=== PATIENT | female | born 1955 | race Caucasian/White ===

== ENCOUNTER 2019-12-28 06:34 | Observation (INO) ==
--- NOTE | 2019-12-05 19:48 | PAT Medication Instructions ---
Medication Instructions Date of Service December 05, 2019 Home Medications ascorbic acid (vitamin C) [Vitamin C] 500 mg PO QAM 11/30/19 [History Confirmed 11/30/19] atorvastatin 20 mg PO PM 11/30/19 [History Confirmed 11/30/19] calcium carbonate-vitamin D3 [Calcium 600 + D(3)] 1 cap PO BID 11/30/19 [History Confirmed 11/30/19] cetirizine [Zyrtec] 10 mg PO QAM 11/30/19 [History Confirmed 11/30/19] cholecalciferol (vitamin D3) [Vitamin D3] 1,000 unit PO QAM 11/30/19 [History Confirmed 11/30/19] diclofenac sodium 75 mg PO BID PRN 11/30/19 [History Confirmed 11/30/19] ferrous sulfate 325 mg PO DAILY 11/30/19 [History Confirmed 11/30/19] hydrochlorothiazide 25 mg PO QAM 11/30/19 [History Confirmed 11/30/19] levothyroxine 175 mcg PO QAM 11/30/19 [History Confirmed 11/30/19] losartan 50 mg PO QPM 11/30/19 [History Confirmed 11/30/19] pramipexole 0.5 mg PO PM 11/30/19 [History Confirmed 11/30/19] ASK your surgeon for instructions diclofenac sodium 75 mg PO BID PRN 11/30/19 [History Confirmed 11/30/19] STOP taking 24 hours before surgery pramipexole 0.5 mg PO PM 11/30/19 DO NOT take the morning of surgery ascorbic acid (vitamin C) [Vitamin C] 500 mg PO QAM 11/30/19 [History Confirmed 11/30/19] calcium carbonate-vitamin D3 [Calcium 600 + D(3)] 1 cap PO BID 11/30/19 [History Confirmed 11/30/19] cetirizine [Zyrtec] 10 mg PO QAM 11/30/19 [History Confirmed 11/30/19] cholecalciferol (vitamin D3) [Vitamin D3] 1,000 unit PO QAM 11/30/19 [History Confirmed 11/30/19] ferrous sulfate 325 mg PO DAILY 11/30/19 [History Confirmed 11/30/19] hydrochlorothiazide 25 mg PO QAM 11/30/19 [History Confirmed 11/30/19] Take morning of surgery With a small sip of water, OTHERWISE NOTHING TO EAT OR DRINK AFTER MIDNIGHT: levothyroxine 175 mcg PO QAM 11/30/19 [History Confirmed 11/30/19] Take evening before surgery atorvastatin 20 mg PO PM 11/30/19 [History Confirmed 11/30/19] calcium carbonate-vitamin D3 [Calcium 600 + D(3)] 1 cap PO BID 11/30/19 [History Confirmed 11/30/19] losartan 50 mg PO QPM 11/30/19 [History Confirmed 11/30/19] Other Notes If you have any questions please call us at [phone] or [phone] or [phone] or [phone]
--- NOTE | 2019-12-06 13:36 | Anesthesiology Consultation ---
Date of Service December 06, 2019 Assessment & Plan (1) Encounter for pre-operative examination: - Awaiting review of preop testing (labs, EKG, CXR). - PCP: 12/02/19: "pt acceptable risk for LTKA in Dec with Dr. Richter as long as her updated EKG at [facility] is stable" Chart Review Chart Review: Patient seen in Pre Admission Testing Teaching & Discussion Pre-Anesthesia Teaching/Discussion Notes: Instructed NPO after midnight before surgery,except medications with 15 cc of water. Medication instructions provided according to the PAT guidelines. History Surgery Operation Date: 12/28/19 11:20 Proposed Procedures p Left Total Knee Arthroplasty - Blaise Richter MD Height/Weight Height: 5 ft 10 in Weight: 108.4 kg Allergies Allergy/AdvReac Type Severity Reaction Status Date / Time lisinopril AdvReac Intermediate Cough Verified 11/30/19 12:58 Medications Home Medications Medication Instructions Recorded Confirmed Last Taken ascorbic acid (vitamin C) [Vitamin 500 mg PO QAM 11/30/19 11/30/19 Unknown C] atorvastatin 20 mg PO PM 11/30/19 11/30/19 Unknown calcium carbonate-vitamin D3 1 cap PO BID 11/30/19 11/30/19 Unknown [Calcium 600 + D(3)] cetirizine [Zyrtec] 10 mg PO QAM 11/30/19 11/30/19 Unknown cholecalciferol (vitamin D3) 1,000 unit PO QAM 11/30/19 11/30/19 Unknown [Vitamin D3] diclofenac sodium 75 mg PO BID PRN 11/30/19 11/30/19 Unknown ferrous sulfate 325 mg PO DAILY 11/30/19 11/30/19 Unknown hydrochlorothiazide 25 mg PO QAM 11/30/19 11/30/19 Unknown levothyroxine 175 mcg PO QAM 11/30/19 11/30/19 Unknown losartan 50 mg PO QPM 11/30/19 11/30/19 Unknown pramipexole 0.5 mg PO PM 11/30/19 11/30/19 Unknown Past Medical History Medical History Diverticular disease Hearing deficit Hyperlipidemia Hypertension Hypothyroidism Obesity Osteoarthritis Exercise / Class Metabolic Activity II 4-5 Yardwork/Stairs/Walk up hill Past Family History Family History Mother FHx: breast cancer, Onset Age: 67 FHx: malignant neoplasm of bone Father FHx: pancreatic cancer Sister FHx: pancreatic cancer Past Surgical History Surgical History History of section History of colonoscopy History of esophagogastroduodenoscopy (EGD) S/P BERHANE (total abdominal hysterectomy) with unilateral oopherectomy Past Anesthesia History No Hx of Anesthesia Complications (except PONV x1 ) and No Family Hx of Anesthe carlos Complications History of PONV No Hx of Motion Sickness and History of PONV (x1 episode) Social History Smoking Status: Never smoker Do You Dip or Chew Tobacco: No Hx Alcohol Use: No Hx Substance Use: No Review of Systems Patient denies chest pain, shortness of breath, dyspnea on exertion, cough, wheezing, palpitations. Physical Exam Vital Signs VITALS BP 151/85 P 68 TEMP 97.9 SP02 98%RA RESP 18 PHYSICAL Full neck and c-spine range of motion. Full TMJ range of motion. TMD 2 finger breaths Mallampati Score 3 Dentition: chipped molar Lungs: clear throughout to auscultation Cardiac: regular rate and rhythm, no murmurs noted Spine: normal Carotid arteries: negative bruit Extremities: no edema Testing Laboratory Results 11/28/19 WBC 6.26 H/H 13.9/43.1 PLATELETS 273 SODIUM 145 POTASSIUM 3.9 CHLORIDE 108 CO2 26 BUN 17 CREATININE 0.9 GLUCOSE 93 Stress Test Date: 09/03/18 Type: DSE DSE normal without resting LV wall motion abnormalities or inducible ischemia. No EKG evidence of ischemia. LVEF 57%. 89% MPHR. No significant valvular disease. Occasional PAC's/PVC's.
--- NOTE | 2019-12-06 14:48 | XRay Report ---
XR chest Pre-admission PA/Lat HISTORY: Preop. COMPARISON: None. FINDINGS: The lungs are clear. Cardiac silhouette is normal in size. No pleural effusions. No pneumot horax. IMPRESSION: No acute process. ACT 112: Negative or not required by law. Electronically signed by: Dell Pickering M.D. 12/06/2019 2:47 PM
[2019-12-06 16:20] LABS: Partial Thromboplastin Ratio 0.9; Partial Thromboplastin Time 23.8 Seconds (21.0-31.0); Prothrombin Time 10.3 Seconds (9.0-12.0)
[2019-12-06 16:22] LABS: Appearance Urine Cloudy (Clear); Bacteria Urine Automated 1+ (Negative); Bilirubin Urine Negative (Negative); Blood Urine Negative (Negative); Color Urine Dark Yellow; Epithelial Cell Urine Auto >30 /lpf (0-5); Glucose Urine UA Negative (Negative); Ketones Urine Trace (Negative); Leukocyte Esterase Urine 2+ (Negative); Nitrite Urine Negative (Negative); Protein Urine Negative (Negative); RBC Urine Automated 0-4 /hpf (0-4); Specific Gravity Urine 1.028 (1.000-1.030); Urobilinogen Urine Negative (Negative)
--- NOTE | 2019-12-06 23:09 | Electrocardiogram Report ---
Test Reason : Blood Pressure : / mmHG Vent. Rate : 069 BPM Atrial Rate : 069 BPM P-R Int : 132 ms QRS Dur : 092 ms QT Int : 408 ms P-R-T Axes : 012 027 067 degrees QTc Int : 437 ms Normal sinus rhythm Normal ECG No previous ECGs available Confirmed by Rusty Escudero ([id number]) on 12/06/2019 11:09:46 PM Referred By: Blaise Richter Confirmed By:Rusty Escudero
[2019-12-07 05:39] LABS: Estimated Average Glucose 108 mg/dl; Hemoglobin A1C 5.4 % (4.5-5.6)
--- NOTE | 2019-12-27 18:26 | History and Physical Report ---
DATE OF ADMISSION: 12/28/2019 CHIEF COMPLAINT: Left knee pain. HISTORY OF PRESENT ILLNESS: This is a 64-year-old female patient of Dr. Graff complaining of chronic left knee pain, longstanding, now progressively getting worse. The patient has been diagnosed with end-stage osteoarthritis per clinical and radiographic exams. The patient has failed conservative treatment including intra-articular injections, anti-inflammatories, the use of a brace and home exercise program. The patient wished to proceed with a left total knee arthroplasty. PAST MEDICAL HISTORY: Heart murmur, hypertension, hypothyroidism, osteoarthritis, obesity. SOCIAL HISTORY: Nonsmoker, nondrinker. FAMILY HISTORY: Noncontributory. REVIEW OF SYSTEMS: Chronic left knee pain and instability. Otherwise, denies any shortness of breath, chest pain, nausea, vomiting or any other joint complaints. PAST SURGICAL HISTORY: C-sections x2 and hysterectomy. MEDICATIONS: 1. Hydrochlorothiazide 25 mg daily. 2. Ferrous sulfate 325 mg daily. 3. Levothyroxine 175 mcg daily. 4. Diclofenac sodium 75 mg twice daily. 5. Losartan 50 mg daily. 6. Atorvastatin 20 mg daily. 7. Mirapex 0.5 mg daily. 8. Fluticasone 50 mcg actuation nasal inhaler 2 sprays in each nostril daily as needed. 9. Vitamin C as needed. 10. Loratadine 10 mg daily. 11. Tylenol as needed. 12. Vitamin D 400 units daily. 13. Calcium 500 mg daily. ALLERGIES: LISINOPRIL. PHYSICAL EXAMINATION: GENERAL: Well-developed, well-nourished 64-year-old female in no acute distress. She is alert and oriented x3 and pleasant. HEENT: Normocephalic, atraumatic. Extraocular motions are intact. Pupils are equal and reactive to light. HEART: Regular rate and rhythm, no murmurs. LUNGS: Clear. ABDOMEN: Soft, nontender, bowel sounds present. EXTREMITIES: Left knee reveals a varus deformity with medial joint line tenderness. She has a mild effusion. Limited range of motion of negative 10-115 degrees, 5/5 strength with pain. DIAGNOSES: Left knee end-stage osteoarthritis, heart valve problem, hypertension, hypothyroidism, osteoarthritis, and obesity. PLAN: The patient was advised of her diagnosis. Indications, risks, benefits, postop course have all been reviewed. The patient wished to proceed with left total knee arthroplasty. Necessary consent forms, preoperative testing and clearances will be obtained.
[~2019-12-28 06:34] MED LIST: ACETAMINOPHEN 500 MG TAB PO SCH; BUPIVACAINE 0.5 % 5 MG/1 ML PF 10ML VIAL ONE; CEFAZOLIN 2000MG 2,000 MG/15 ML SYR IV SCH; CeleBREX 200 MG CAP PO SCH; EPINEPHrine INJ 1 MG/ML AMP ONE; FAMOTIDINE 20 MG TAB PO SCH; GABAPENTIN 600 MG DOSE PO SCH; LR 500ML BOLUS, THEN 15ML/HR IV SCH; METOCLOPRAMIDE HCL 10 MG TABLET PO SCH; ROPIVACAINE 0.5% 5 MG/ML 30 ML VIAL ONE; ROPIVACAINE 0.5% HCL/PF 150 MG, BUPIVACAINE 0.5% MPF 30 ML, EPINEPHrine 30MG/30ML (OR U... INFIL SCH; TRANEXAMIC ACID 1,000 MG **IV Intra-op IV SCH; TRANEXAMIC ACID 1,000 MG **IV Pre-op IV SCH; dexAMETHasone 4 MG TAB PO SCH
[2019-12-28] MEDS ORDERED: PROPOFOL IV EMULSION 10 MG/ML 20 ML VIAL IV ONE (06:51)
[2019-12-28] MEDS ORDERED: LIDOCAINE HCL 2% 2 ML VIAL/AMP(20MG/ML) INFIL ONE (06:51)
[2019-12-28] MEDS ORDERED: MIDAZOLAM HCL 1 MG/ML 2ML VIAL ONE (06:51)
[2019-12-28] MEDS ORDERED: ONDANSETRON INJ 2 MG/ML 2 ML VIAL ONE (06:51)
[2019-12-28] MEDS ORDERED: fentaNYL citrate 100 MCG/2 ML VIAL ONE (06:51)
--- NOTE | 2019-12-28 06:56 | History & Physical Bridge Note ---
Date of Service December 28, 2019 History & Physical Bridge Note I have examined the patient, reviewed the History & Physical and in the interval since the performance of the History & Physical I have noted the following changes of clinical significance: no changes noted
[2019-12-28] MEDS ORDERED: BACITRACIN INJ 50,000 UNIT VIAL ONE (08:25)
[2019-12-28] MEDS ORDERED: ORTHO JOINT ANESTHETIC ONE (08:25)
[2019-12-28] MEDS ORDERED: ePHEDrine sulfate 50 MG/ML AMP IV PRN (10:48)
[2019-12-28] MEDS ORDERED: ATROPINE SULFATE 0.1 MG/ML 10ML SYR IV PRN (10:48)
--- NOTE | 2019-12-28 10:54 | Operative Report ---
Post Operative Report Pre & Post Diagnosis Operation Date: 12/28/19 08:40 Pre-Op Diagnosis: LEFT KNEE OSTEOARTHRITIS Post-Op Diagnosis: LEFT KNEE OSTEOARTHRITIS I identified the patient and participated in the time-out.: Yes Procedure Operation Date: 12/28/19 08:40 Actual Procedures p Left Total Knee Arthroplasty(Left) - Blaise Richter MD Surgeon Blaise Richter MD Commiss[employer] Steward Juan ROMERO Estimated Blood Loss 5 Findings Consistent with Post-Op Diagnosis Specimens Bone cuts Drains 2 Hemovac Anesthesia Type MAC Spinal Regional Complications none Disposition Accompanied Patient To Recovery: No Disposition: Recovery Room Indications 64-year-old female with progressive osteoarthritis left knee. Patient has end- stage osteoarthritis bone loss medial compartment with varus knee laxity LCL tricompartmental osteoarthritis [id number] medial compartment Description of Procedure Patient taken to the operating room the size under spinal MAC regional anesthesia. Patient was placed supine on the operating table. A pneumatic tourniquet was placed about the left upper thigh. The left lower extremity was prepped and draped in sterile fashion. Knee exam demonstrated 10 degree flexion contracture with flexion to 95 degrees varus knee tight medial compartment laxity LCL. The leg was elevated exsanguinated with an Esmarch bandage and pneumatic tourniquet was raised to 325 millimeters of mercury. Skin incised sharply in longitudinal fashion. Subcutaneous flaps elevated. Incision was made through the medial retinaculum extending up in the mid third of the quadriceps tendon and down to the medial tibial tubercle. Intra-articular findings demonstrated tricompartmental OA medial posterior medial bone loss on the tibia [id number] medial compartment [id number] in the trochlea and patella chronic ACL tear tricompartmental osteophytes and loose bodies.. The [place] triathlon total knee arthroplasty system was used. To expose the knee the infrapatellar fat pad was resected. The meniscal remnants and cruciate ligaments were resected. The anterior fat pad over the femur in the area of the anterior flange of the femoral component was resected. Lateral synovial bands release. The femur was exposed. An intramedullary drill hole was made into the canal. A guide hiral was placed. Distal femoral cutting guide was adjusted to resect a 5 degree valgus cut with 10 millimeters distal femur resected. The knee was extended and a subperiosteal peel lateral release was performed around the patella. Patella width was measured and width was reproduced using a freehand cut technique and a 33 x 9 symmetrical patella component. The 3 drill holes were made and the excess lateral facet was beveled off to prevent any impingement. Attention was taken back to the femur which was exposed with retractors and the femoral sizing guide was pinned in position. The drill holes were placed in 3 of external rotation to match epicondylar axis. Femur sized for a 5 PS component. The 4-in-1 cutting block was placed and then the anterior posterior and chamfer cuts are made. The tibia was then subluxed. The external tibial cutting guide was just to make a perpendicular cut to the long axis of the tibia below the most deficient bone loss side. A lamina school bus driver/mechanic was used and the flexion extension gaps were balanced. This required medial posterior medial release excision posterior medial osteophytes pie crusting MCL. All posterior osteophytes removed. All meniscal remnants were resected. The tibia exposed and the trial tibial component size 4 was externally rotated in line with the tibial tubercle and pinned in position. The punch and drills for stem were used. The notch cutting device was centered appropriately and the femoral notch cut was made. The femoral trial was inserted. Trial tibial inserts were placed and size 13 gave balanced ligaments through flexion and extension. Patella tracking was assessed. The patella tracked centrally. The trial components were then removed and the orthomix anesthetic cocktail was injected per protocol. The knee was then copiously irrigated with pulsatile lavage antibiotic solution. Final components were then cemented with Simplex cement. Final components were left posterior stabilized size 5 Jama femoral component with distal fixation pegs, size 4 tibial universal baseplate with 12 x 50 mm cemented stem, 13 posterior stabilized polyethylene insert, 33 x 9mm symmetrical patella. While the cement cured the Betadine soak was used per protocol. After cement cured further pulsatile lavage irrigation performed and 2 Hemovac drains were brought out laterally. The quadriceps tendon and medial retinaculum were closed with figure of 8 #1 Vicryl sutures. The knee was taken through full range of motion and the repair was secure. The subcutaneous tissues were closed with 2-0 Vicryl sutures. Skin was closed with blayne. Sterile dressings were applied. Patient procedure well. Catalino ROMERO was my physician photography assistant who assisted in patient positioning prepping and draping,leg positioning ,soft tiss ue retraction and instrument management and participated in the closing and will participate in postoperative care of the patient. The patient tolerated the procedure well. I attest to the content of the Intraoperative Record and any orders documented therein. Any exceptions are noted below.
--- NOTE | 2019-12-28 11:35 | XRay Report ---
XR knee LT 1 or 2V routine CLINICAL HISTORY: Surgical Post Op COMPARISON: None. DISCUSSION: There are postsurgical changes of a total left knee arthroplasty and patellar resurfacing . Overlying skin blayne and surgical drains are evident. Air within the soft tissues is felt to be p ostsurgical. The femoral and tibial components appear well seated. IMPRESSION: Postsurgical changes of a total left knee arthroplasty. ACT 112: Negative or not required by law. Electronically signed by: Fabricio Eastman M.D. 12/28/2019 11:34 AM
--- NOTE | 2019-12-28 11:49 | Anesthesiology Progress Note ---
Date of Service December 28, 2019 Anesthesia Post Procedure Vital Signs Vital Signs: Temp Pulse Pulse Resp BP Pulse Ox 12/28/19 11:40 72 12 126/66 97 12/28/19 11:30 73 11 L 134/64 98 12/28/19 11:20 81 12 130/65 97 12/28/19 11:10 36.8 C 87 13 129/56 L 93 12/28/19 06:57 36.8 C 86 18 170/88 H 97 Pain Intensity Left Knee: Pain Intensity: 0 Transfer of Care Handoff Completed per policy Notes Mental Status: alert / awake / arousable Patient Amnestic to Procedure: Yes Nausea / Vomiting: adequately controlled Pain: adequately controlled Airway Patency, RR, SpO2: stable & adequate BP & HR: stable & adequate Hydration State: stable & adequate Anesthetic Complications: no major complications apparent
[2019-12-28] MEDS ORDERED: bisacodyL 10 MG SUPP PR PRN (12:14)
[2019-12-28] MEDS ORDERED: NALOXONE HCL 0.4 MG/1 ML VIAL/CARP IV PRN (12:14)
[2019-12-28] MEDS ORDERED: ONDANSETRON INJ 2 MG/ML 2 ML VIAL IV PRN (12:14)
[2019-12-28] MEDS ORDERED: MAGNESIUM HYDROXIDE SUSP 30 ML UDC PO PRN (12:14)
[2019-12-28] MEDS ORDERED: HYDROmorphone INJ 0.5 MG/0.5 ML SYR IV PRN (12:14)
[2019-12-28] MEDS: ACETAMINOPHEN 500 MG TAB PO SCH ×2 (13:46→21:18)
[2019-12-28] MEDS: SODIUM CHLORIDE 0.9% 1000ML 1,000 ML IV SCH (17:06)
[2019-12-28] MEDS: FERROUS GLUCONATE 324 MG TAB PO SCH (17:08)
[2019-12-28] MEDS: CEFAZOLIN 2000MG 2,000 MG/15 ML SYR IV SCH (18:05)
[2019-12-28] MEDS: ASPIRIN 81 MG ECTAB PO SCH (21:17)
[2019-12-28] MEDS: CALCIUM 600MG + VIT D 400 IU TAB PO SCH (21:17)
[2019-12-28] MEDS: DOCUSATE SODIUM 100 MG CAP PO SCH (21:17)
[2019-12-28] MEDS: SENNA 8.6 MG TAB PO SCH (21:18)
[2019-12-28] MEDS: LOSARTAN POTASSIUM 50 MG TAB PO SCH (21:18)
[2019-12-28] MEDS: PRAMIPEXOLE DIHYDROCHLO 0.5 MG TAB PO SCH (21:18)
[2019-12-28] MEDS: ATORVASTATIN 20 MG TAB PO SCH (21:18)
[2019-12-28] MEDS: OXYCODONE HCL IR 5 MG TAB (IMMEDIATE RELEASE) PO PRN (22:17)
[2019-12-29] MEDS: CEFAZOLIN 2000MG 2,000 MG/15 ML SYR IV SCH (02:22)
[2019-12-29] MEDS: SODIUM CHLORIDE 0.9% 1000ML 1,000 ML IV SCH (02:31)
[2019-12-29] MEDS: LEVOTHYROXINE SODIUM 175 MCG TABLET PO SCH (05:55)
[2019-12-29 06:09] LABS: Hematocrit (blood only) 33.5 % (37-47); Hemoglobin 11.1 g/dL (12.0-16.0); Mean Corpuscular Hemoglobin 30.1 pg (25-34); Mean Corpuscular Hgb Conc 33.1 g/dL (32-36); Mean Corpuscular Volume 90.8 fL (80-100); Mean Platelet Volume 10.2 fL (7.4-10.4); Platelet Count 230 K/uL (130-400); RDW Coefficient of Variation 12.4 % (11.5-14.5); RDW Standard Deviation 41.5 fL (36.4-46.3); Red Blood Count 3.69 M/uL (4.2-5.4); White Blood Count 14.51 K/uL (4.8-10.8)
[2019-12-29] MEDS: ACETAMINOPHEN 500 MG TAB PO SCH ×3 (06:31→21:29)
[2019-12-29 06:41] LABS: Calcium 8.4 mg/dl (8.5-10.1); Creatinine Clr Calc Pharmacy 90.5 ml/min; Est GFR (African American) 86.4; Est GFR (Non-African American) 74.5; Potassium 4.1 mmol/L (3.5-5.1)
[2019-12-29] MEDS: DOCUSATE SODIUM 100 MG CAP PO SCH ×2 (08:48→21:29)
[2019-12-29] MEDS: CALCIUM 600MG + VIT D 400 IU TAB PO SCH ×2 (08:48→21:29)
[2019-12-29] MEDS: ASPIRIN 81 MG ECTAB PO SCH ×2 (08:48→21:29)
[2019-12-29] MEDS: CETIRIZINE HCL 10 MG TABLET PO SCH (08:48)
[2019-12-29] MEDS: CHOLECALCIFEROL 1,000 UNITS 25 MCG TAB PO SCH (08:48)
[2019-12-29] MEDS: FERROUS GLUCONATE 324 MG TAB PO SCH ×2 (08:48→17:41)
[2019-12-29] MEDS: MULTIVITAMIN TAB PO SCH (08:48)
--- NOTE | 2019-12-29 09:33 | Anesthesiology Progress Note ---
Date of Service December 29, 2019 Anesthesia Post Procedure Vital Signs Vital Signs: Temp Pulse Pulse Resp BP Pulse Ox 12/29/19 08:39 36.4 C L 64 17 151/81 H 98 12/29/19 03:25 36.8 C 68 16 132/74 95 12/28/19 23:29 36.8 C 67 16 114/69 92 12/28/19 19:53 36.9 C 79 16 132/75 96 12/28/19 16:27 97 12/28/19 15:09 36.4 C L 75 20 130/76 96 12/28/19 14:06 36.3 C L 74 16 126/73 98 12/28/19 13:11 36.8 C 74 18 127/74 985 H 12/28/19 12:32 36.8 C 75 17 129/78 98 12/28/19 12:05 36.6 C 75 14 122/72 97 12/28/19 12:01 72 14 141/72 H 98 12/28/19 11:50 36.4 C L 76 15 141/72 H 98 12/28/19 11:40 72 12 126/66 97 12/28/19 11:30 73 11 L 134/64 98 12/28/19 11:20 81 12 130/65 97 12/28/19 11:10 36.8 C 87 13 129/56 L 93 Pain Intensity Left Knee: Pain Intensity: 0 Notes Mental Status: alert / awake / arousable and participated in evaluation Patient Amnestic to Procedure: Yes Nausea / Vomiting: adequately controlled Pain: adequately controlled Airway Patency, RR, SpO2: stable & adequate BP & HR: stable & adequate Hydration State: stable & adequate Neuraxial Anesthesia: was administered and sensory block resolved Anesthetic Complications: no major complications apparent and Pt Satisfied with anesthetic care
--- NOTE | 2019-12-29 09:38 | Orthopedic Progress Note ---
Date of Service December 29, 2019 Assessment & Plan (1) Arthritis of left knee: POD #1, Left TKA PT/ OT DVT proph- ASA D/C planning- Home w OPPT As per medicine. Admission and Anticipated Discharge Date Admission Date: December 28, 2019 Subjective POD #1, Doing well. Denies SOB, CP. N/V. Pain controlled well. Wishes OPPT on D/C. Physical Exam Physical Exam: Left knee dressings/ drain c/d/i. Toes/ ankle mobile. No calf tenderness. A&Ox3 Results & Data ([facility]) Vital Signs (Past 12 Hours) Vital Signs Temp Pulse Resp BP Pulse Ox 12/29/19 08:39 36.4 C L 64 17 151/81 H 98 12/29/19 03:25 36.8 C 68 16 132/74 95 12/28/19 23:29 36.8 C 67 16 114/69 92
[2019-12-29] MEDS: OXYCODONE HCL IR 5 MG TAB (IMMEDIATE RELEASE) PO PRN ×3 (11:44→19:50)
[2019-12-29] MEDS: LOSARTAN POTASSIUM 50 MG TAB PO SCH (21:29)
[2019-12-29] MEDS: ATORVASTATIN 20 MG TAB PO SCH (21:29)
[2019-12-29] MEDS: PRAMIPEXOLE DIHYDROCHLO 0.5 MG TAB PO SCH (21:29)
[2019-12-29] MEDS: SENNA 8.6 MG TAB PO SCH (21:29)
[2019-12-30] MEDS: LEVOTHYROXINE SODIUM 175 MCG TABLET PO SCH (06:05)
[2019-12-30] MEDS: ACETAMINOPHEN 500 MG TAB PO SCH ×2 (06:05→13:48)
[2019-12-30] MEDS: CHOLECALCIFEROL 1,000 UNITS 25 MCG TAB PO SCH (08:36)
[2019-12-30] MEDS: CALCIUM 600MG + VIT D 400 IU TAB PO SCH (08:36)
[2019-12-30] MEDS: FERROUS GLUCONATE 324 MG TAB PO SCH (08:36)
[2019-12-30] MEDS: CETIRIZINE HCL 10 MG TABLET PO SCH (08:36)
[2019-12-30] MEDS: MULTIVITAMIN TAB PO SCH (08:36)
[2019-12-30] MEDS: DOCUSATE SODIUM 100 MG CAP PO SCH (08:36)
[2019-12-30] MEDS: OXYCODONE HCL IR 5 MG TAB (IMMEDIATE RELEASE) PO PRN ×2 (08:37→13:50)
--- NOTE | 2019-12-30 08:51 | Orthopedic Progress Note ---
Date of Service December 30, 2019 Assessment & Plan (1) Arthritis of left knee: POD #2, Left TKA PT/ OT DVT proph- ASA D/C planning- Home w OPPT today. As per medicine. Admission and Anticipated Discharge Date Admission Date: December 28, 2019 Subjective POD #2, Doing well. Denies SOB, CP. N/V. Pain controlled well. Wishes OPPT on D/C. Physical Exam Physical Exam: Left knee silverlon dressing c/d/i, no drainage. Toes/ ankle mobile. No calf tenderness A&Ox3. Results & Data ([facility]) Vital Signs (Past 12 Hours) Vital Signs Temp Pulse Resp BP Pulse Ox 12/30/19 07:11 36.5 C 70 17 117/72 97 12/29/19 23:30 37.0 C 70 16 127/73 95
[2019-12-30] MEDS: ASPIRIN 81 MG ECTAB PO SCH (10:01)
== END 2019-12-30 14:09 | disposition home or self-care (01) | DRG 470 ==
LOC: ASU 06:34 → 3E 11:19 → INTOOBSV 11:19